=== PATIENT | female | born 1990 | race Caucasian/White ===

== ENCOUNTER 2018-03-23 17:24 | Inpatient (IN) | payer OTHER ==
[~2018-03-23] VITALS: Ht 172.7 cm; Wt 215.0 kg
== END 2018-03-25 17:31 | disposition home or self-care (01) | DRG 782 ==
LOC: OBS/DEL 17:24 → LDR 03-24 13:32
PROC: BY4FZZZ Ultrasonography of Third Trimester, Single Fetus (ICD-10-PCS; principal; 2018-03-24)
PROC: 4A1HXCZ Monitoring of Products of Conception, Cardiac Rate, External Approach (ICD-10-PCS; 2018-03-24)
DX: O42.013 Preterm premature rupture of membranes, onset of labor within 24 hours of rupture, third trimester (principal)

== ENCOUNTER 2018-04-20 00:34 | Inpatient (IN) | payer OTHER ==
[~2018-04-20] VITALS: Ht 172.7 cm; Wt 3.6 kg
[2018-04-20] MEDS ORDERED: PRENATAL 19 TA1 EACH PO (01:01)
== END 2018-04-24 15:50 | disposition home or self-care (01) | DRG 788 ==
LOC: OBS/DEL 00:34 → OB/GYN 13:16 → LDR 13:16 → OB/GYN 04-21 05:44
PROVIDERS: Obstetrics & Gynecology Obstetrics
PROC: 10907ZC Drainage of Amniotic Fluid, Therapeutic from Products of Conception, Via Natural or Artificial Opening (ICD-10-PCS; 2018-04-21)
PROC: 3E033VJ Introduction of Other Hormone into Peripheral Vein, Percutaneous Approach (ICD-10-PCS; 2018-04-21)
PROC: 4A1HXCZ Monitoring of Products of Conception, Cardiac Rate, External Approach (ICD-10-PCS; 2018-04-21)
PROC: 10D00Z1 Extraction of Products of Conception, Low, Open Approach (ICD-10-PCS; principal; 2018-04-21 07:00)
DX: O62.0 Primary inadequate contractions (principal); Z3A.39 39 weeks gestation of pregnancy; Z37.0 Single live birth

== ENCOUNTER 2018-04-26 22:10 | Inpatient (IN) | payer OTHER ==
[~2018-04-26] VITALS: Ht 172.7 cm; Wt 90.7 kg
[~2018-04-26 22:10] MED LIST: PRENATAL 19 TA1 EACH PO
== END 2018-05-07 13:47 | DRG 776 ==
LOC: ER 22:10 → OB/GYN 04-27 10:51
DX: O86.09 Infection of obstetric surgical wound, other surgical site (principal)